=== PATIENT | female | born 1965 | race Two or more races ===

== ENCOUNTER 2018-08-09 12:24 | Day surgery (SDC) | payer OTHER ==
[2018-08-01 15:44] VITALS: BMI 22.3
[~2018-08-09 12:24] MED LIST: LIDOCAINE HCL 1%, 10 MG/ML (20ML VIAL) INF ONE; LIDOCAINE HCL 2% (50ML VIAL) INF ONE
[2018-08-09] MEDS ORDERED: BUPIVACAINE HCL/PF 0.25% (2.5MG/ML) 10 ML VIAL ONE (13:27)
[2018-08-09] MEDS ORDERED: LIDOCAINE HCL 1%, 10 MG/ML (20ML VIAL) ONE (13:27)
[2018-08-09] MEDS ORDERED: MIDAZOLAM HCL 2 MG/2 ML SINGLE DOSE VIAL ONE ×3 (13:33→14:57)
[2018-08-09] MEDS ORDERED: BENZOIN TINCTURE SWABSTICK TP ONE (13:39)
[2018-08-09] MEDS ORDERED: LIDOCAINE HCL 2% (20ML MULTI-DOSE VIAL) NR ONE (13:40)
[2018-08-09] MEDS ORDERED: CLINDAMYCIN 600 MG PREMIX BAG IVPB ONE (14:20)
[2018-08-09] MEDS ORDERED: CLINDAMYCIN PHOSPHATE 600 MG/4 ML VIAL ONE (14:34)
[2018-08-09] MEDS ORDERED: PROPOFOL 20 ML ONE (14:47)
[2018-08-09] MEDS ORDERED: LIDOCAINE HCL 1%, 10 MG/ML (20ML VIAL) INF ONE (14:58)
[2018-08-09] MEDS ORDERED: LIDOCAINE HCL 1%, 10 MG/ML (50 mL VIAL) IJ ONE (14:58)
[2018-08-09] MEDS ORDERED: LIDOCAINE HCL 2% (50ML VIAL) INF ONE ×2 (15:01)
[2018-08-09] MEDS ORDERED: oxyCODONE HCL 5 MG TABLET PO PRN (15:26)
[2018-08-09] MEDS ORDERED: ONDANSETRON 4 MG/2 ML VIAL IVPUSH PRN (15:26)
[2018-08-09] MEDS ORDERED: LACTATED RINGERS SOLUTION 1,000 ML IV SCH (15:30)
[2018-08-09 19:22] VITALS: BP 109/63; PULSE 89; TEMP 98.2
--- NOTE | 2018-08-10 17:22 | PROC ---
Procedure Note Procedure: Date of service: 08/09/18 Preoperative Diagnosis: Lumbar Radiculopathy Postoperative Diagnosis: Same Procedure Performed: 1) Insertion of spinal cord stimulator leads x 1 2) Fluoroscopic needle guidance 3) Initial programming of device Anesthesia: Local (2% Lidocaine )/MAC Anesthesiologist: Procedure: I discussed with the patient in detail about the risks, benefits and alternatives to treatment not only limited to infection, headache, numbness, weakness and injury to nerves, spinal cord, blood vessels and muscles. The patient understood, agreed and signed the written consent. The patient was positioned prone on the fluoroscopy table. The patient was prepped and draped in the usual sterile fashion using DuraPrep and a fenestrated drape. Routine vital sign monitors were applied and anesthesia was initiated. The patient remained conversant throughout the procedure. The area to be injected was determined using fluoroscopy. Local anesthetic was given by raising a skin wheal and going down to the hub of a 22-gauge 1.5-inch needle with 1% lidocaine. The 25-gauge 3.5-inch needle was used to anesthetize the L1 lamina with 2% bupivacaine. A 14-gauge Tuohy needle was then advanced to contact the right t12-L1- level. It was walked off in a superior medial direction until it entered the epidural space using loss of resistance to air. The high - frequency spinal cord stimulator lead was advanced through the Tuohy needle. The lead was attempted to be driven to the level of T8. The lead was unable to be steered superiorly midline. The 14 guage was removed and the patient was repositioned. A 14-gauge Tuohy needle was then advanced to contact the right t12 -L1- level. It was walked off in a superior medial direction until it entered the epidural space using loss of resistance to air. Again the lead was unable to be advanced. The same procedure was repeated in detail for the left side to insert a second lead within the epidural space to reside at T8 level. The lead again was unable to be advanced due to what appeared to be scar tissue/ adhesions from her previous stimulator implant. A final attmept was made to insert the lead at the T10- T11 interspace. Local anesthetic was given by raising a skin wheal and going down to the hub of a 22-gauge 1.5-inch needle with 1% lidocaine. The 25-gauge 3.5-inch needle was used to anesthetize the L1 lamina with 2% bupivacaine. A 14-gauge Tuohy needle was then advanced to contact the right t10 L1 level. It was walked off in a superior medial direction until it entered the epidural space using loss of resistance to air. The high - frequency spinal cord stimulator lead was advanced through the Tuohy needle. The lead was attempted to be driven to the level of T8.The and directed to rest the tip at the T9. Lead position was confirmed both in AP and Lateral views under Fluoroscopy. The needle were withdrawn leaving the leads in place and were then secured to the patients skin using Stay-Fix adhesive bandages and Tegaderm. The patients back was cleaned. The patient was allowed to fully recover from anesthesia and taken to the recovery room in good position. The procedure was completed without complications and was tolerated well. The patient was monitored after the procedure. Stimulation programming and testing of the device was done in the recovery room by the device patient financial representative. The patient (or responsible libertarian) was given post-procedure and discharge instructions to follow at home. The patient was discharged in stable condition. Pre-procedure pain score: 8/10. Post-procedure pain score: 0/10. A follow-up appointment was made. If there is any problem, call my office at [phone] or report to Emergency Room. Virgil Powell DO
== END 2018-08-09 19:10 | disposition home or self-care (01) ==
LOC: JASU-SURG 12:24
PROVIDERS: ATTEND Pain Medicine Pain Medicine
PROC: 4B01XVZ Measurement of Peripheral Nervous Stimulator, External Approach (ICD-10-PCS; 2018-08-09)
PROC: 01HY3MZ Insertion of Neurostimulator Lead into Peripheral Nerve, Percutaneous Approach (ICD-10-PCS; 2018-08-09)
PROC: 4B01XVZ Measurement of Peripheral Nervous Stimulator, External Approach (ICD-10-PCS; 2018-08-09)
PROC: 00HU3MZ Insertion of Neurostimulator Lead into Spinal Canal, Percutaneous Approach (ICD-10-PCS; principal; 2018-08-09 14:00)
DX: M54.16 Radiculopathy, lumbar region (principal); M79.605 Pain in left leg; M79.604 Pain in right leg; M51.26 Other intervertebral disc displacement, lumbar region
CPT/HCPCS: 63650; 95972; C1897; 76000-TC-FY

== ENCOUNTER 2018-09-11 05:45 | Day surgery (SDC) | payer OTHER ==
[2018-09-04 10:15] VITALS: BMI 23.0
[2018-09-11] MEDS ORDERED: GELATIN, ABSORBABLE 12-7MM EACH SPONGE TP ONE (07:12)
[2018-09-11] MEDS ORDERED: THROMBIN (RECOMBINANT) 5,000 UNIT VIAL TP ONE (07:12)
[2018-09-11] MEDS ORDERED: MIDAZOLAM HCL 2 MG/2 ML SINGLE DOSE VIAL ONE (07:46)
[2018-09-11] MEDS ORDERED: ROCURONIUM BROMIDE 50 MG/5 ML VIAL ONE (07:46)
[2018-09-11] MEDS ORDERED: PROPOFOL 20 ML ONE ×2 (07:46→09:22)
[2018-09-11] MEDS ORDERED: SODIUM CHLORIDE 0.9% P/F 10 ML VIAL IJ ONE (07:59)
[2018-09-11] MEDS ORDERED: ceFAZolin SODIUM 1 GM VIAL ONE (07:59)
[2018-09-11] MEDS ORDERED: ONDANSETRON 4 MG/2 ML VIAL ONE (08:31)
[2018-09-11] MEDS ORDERED: DEXAMETHASONE SOD PHOSPHATE 4 MG/1 ML VIAL ONE (08:31)
[2018-09-11] MEDS ORDERED: LIDOCAINE HCL 1% PRESERVATIVE FREE - 30ML VIAL ONE (10:26)
[2018-09-11] MEDS ORDERED: KETOROLAC TROMETHAMINE 30 MG/1 ML VIAL ONE (10:48)
[2018-09-11] MEDS ORDERED: BACITRACIN 3.5 GM OPTHALMIC OINT TUBE ONE (11:13)
[2018-09-11] MEDS ORDERED: BACITRACIN 15 GM TUBE TOPICAL OINTMENT ONE (11:14)
[2018-09-11] MEDS ORDERED: SODIUM CHLORIDE 0.45% 1,000 ML IV SCH (11:30)
[2018-09-11] MEDS ORDERED: ONDANSETRON 4 MG/2 ML VIAL IVPUSH PRN (11:35)
[2018-09-11] MEDS ORDERED: PROMETHAZINE HCL 25 MG/1 ML VIAL IVPUSH PRN (11:35)
[2018-09-11] MEDS ORDERED: LACTATED RINGERS SOLUTION 1,000 ML IV SCH (11:45)
[2018-09-11] MEDS ORDERED: CEFAZOLIN 1 GM/D5W 1 GM/50 ML BAG ONE (12:52)
[2018-09-11] MEDS ORDERED: ceFAZolin SODIUM 1 GM VIAL IVPB ONE (14:00)
[2018-09-11] MEDS ORDERED: CEFAZOLIN 1 GM/D5W 1 GM/50 ML BAG IVPB ONE (14:00)
[2018-09-11 14:13] VITALS: PULSE 74
[2018-09-11 14:18] VITALS: BP 106/61; TEMP 98.1
--- NOTE | 2018-09-11 15:06 | OP ---
DATE OF OPERATION: 09/11/2018 PREOPERATIVE DIAGNOSES: 1. Post-laminectomy syndrome. 2. Degenerative disease, lumbar spine. POSTOPERATIVE DIAGNOSES: 1. Post-laminectomy syndrome. 2. Degenerative disease, lumbar spine. PROCEDURE PERFORMED: 1. Partial T8 laminectomy for insertion of spinal cord stimulator paddle. 2. Insertion of thoracic spinal cord stimulator paddle. 3. Insertion of spinal cord stimulator generator. 4. Intraoperative impedance testing. IMPLANTS: [employer] Penta paddle, and [employer] 5 generator. INDICATIONS FOR THE PROCEDURE: The patient is a 53-year-old female with chronic and long-standing history of back pain and prior spinal surgery. She had a spinal cord stimulator placed previously, which gave excellent coverage and relief until it needed to be removed. The patient recently underwent a new spinal cord stimulator trial, which showed excellent relief of her chronic pain. The patient is indicated for permanent implant placement. Risks, benefits and alternatives of the surgery were discussed in detail with the patient. Informed consent was obtained. DESCRIPTION OF THE PROCEDURE: The patient was brought in to operating room by stretcher, and general endotracheal anesthesia was administered by the anesthesiologist. The patient was then flipped into the prone position onto padded chest bolsters. Prior to flipping the patient, the patient was fitted with leads for intraoperative neuromonitoring. The back was then prepped and draped in the usual sterile fashion. Of note, her prior incision did run across the area of intended partial laminectomy. The wounds were then prepped and draped in the usual sterile fashion. A fluoroscopic C-arm was draped in to allow for intraoperative fluoroscopic radiographs. Prophylactic IV antibiotics were administered and a timeout was performed. An incision was then made spanning the top half of the old incision and extending proximally the same length of approximately 2 inches. Dissection was carried down to the level of the 1st spinous process that was palpable, which was the T7 spinous process. Dissection was then carried down distally through the bony lamina. There was noted to be a prior excision of the T8 spinous process. However, I was able to identify the T8 lamina through the scarring. The prior laminectomy appears to have been across T9, with removal of the prior T9 spinous process as well as the T8 spinous process. There was noted to be scarring across the midline from the prior surgery. I carefully removed the scar tissue, allowing access to the interlaminar space, which was carefully dissected out and bone excised with the help of a bur. There was noted to be scarring of the epidural space at this level. I carried the laminotomy more proximal to be able to enter an area that would allow me access to the spinal canal. A gentle dissection was carried down of the dorsal aspect of the spinal cord using a flat probe. Care was taken not to create any undue bleeding. Excellent hemostasis was achieved. The wounds were then copiously irrigated. A paddle was then passed to appropriate depth, with excellent position on the fluoroscopic radiograph. Intraoperative impedance testing showed excellent coverage as well as activity in both lower extremities. The fascia was then closed and the paddle leads were then secured with anchors and 3-0 silk suture. An incision was then made over the right superior iliac crest to allow for placement of the generator. The soft tissue was dissected and a tunneler was then used to pass the leads. The leads were then connected to the generator and impedance testing again showed excellent coverage. The generator was then inserted into the pocket, taking care to place the leads posterior to the generator. The wounds were then copiously irrigated, and deep dermal tissue was approximated with 2-0 Vicryl suture. The skin was closed with a running 2-0 nylon suture. A sterile dressing was applied. The patient tolerated the procedure well without complications. TANNER Ott, was necessary throughout the case, who provided assistance in retraction of the neural elements and implant placement. This could not have been done without a skilled surgical consultant. In addition, the case was significantly more time consuming and technically challenging due to the prior revision nature of the surgery and with dealing with the prior surgery scar tissue. JOSHUA BARROW M.D. [id number]
[2018-09-11] MEDS ORDERED: CEFAZOLIN 1 GM/D5W 1 GM/50 ML BAG IVPB SCH (18:00)
== END 2018-09-11 14:18 | disposition home or self-care (01) ==
LOC: FASU 05:45
PROVIDERS: ATTEND Orthopaedic Surgery Orthopaedic Surgery of the Spine
PROC: 0JH70MZ Insertion of Stimulator Generator into Back Subcutaneous Tissue and Fascia, Open Approach (ICD-10-PCS; 2018-09-11)
PROC: 00HU0MZ Insertion of Neurostimulator Lead into Spinal Canal, Open Approach (ICD-10-PCS; principal; 2018-09-11 08:19)
PROC: 4B01XVZ Measurement of Peripheral Nervous Stimulator, External Approach (ICD-10-PCS; 2018-09-11 08:19)
DX: M96.1 Postlaminectomy syndrome, not elsewhere classified (principal); M51.36 Other intervertebral disc degeneration, lumbar region
CPT/HCPCS: 63655; 63685; 95972; C1778; L8679; 72070-TC-FY; 94760

== ENCOUNTER 2020-09-04 05:16 | Day surgery (SDC) | payer OTHER ==
[2020-09-02 14:03] VITALS: BMI 24.4
[2020-09-04] MEDS ORDERED: LIDOCAINE HCL 1%, 10 MG/ML (20ML VIAL) INF ONE ×2 (13:53)
[2020-09-04 15:07] VITALS: BP 100/64; PULSE 77; TEMP 98.8
== END 2020-09-04 15:09 | disposition home or self-care (01) ==
LOC: JASU-SURG 05:16
PROVIDERS: ATTEND Pain Medicine Pain Medicine
PROC: 01HY3MZ Insertion of Neurostimulator Lead into Peripheral Nerve, Percutaneous Approach (ICD-10-PCS; principal; 2020-09-04 13:45)
DX: G89.4 Chronic pain syndrome (principal); M25.512 Pain in left shoulder
CPT/HCPCS: 64555; C1778

== ENCOUNTER 2021-09-03 04:10 | Day surgery (SDC) | payer OTHER ==
[2021-08-31 15:39] VITALS: BMI 23.0
[2021-09-03] MEDS ORDERED: MIDAZOLAM HCL 2 MG/2 ML SINGLE DOSE VIAL ONE (13:01)
[2021-09-03] MEDS ORDERED: SUCCINYLCHOLINE CHLORIDE 200 MG/10 ML SYRINGE ONE (13:01)
[2021-09-03] MEDS ORDERED: PROPOFOL 20 ML ONE (13:01)
[2021-09-03] MEDS ORDERED: ceFAZolin SODIUM 1 GM VIAL ONE (13:07)
[2021-09-03] MEDS ORDERED: ceFAZolin SODIUM 1 GM VIAL IVPB ONE (13:07)
[2021-09-03] MEDS ORDERED: BUPIVACAINE HCL/PF 0.25% (2.5MG/ML) 10 ML VIAL ONE (13:11)
[2021-09-03] MEDS ORDERED: LIDOCAINE HCL 1% PRESERVATIVE FREE - 30ML VIAL IJ ONE (13:22)
[2021-09-03] MEDS ORDERED: BUPIVACAINE HCL/PF 0.25% (2.5MG/ML) 10 ML VIAL IJ ONE (13:25)
[2021-09-03] MEDS ORDERED: oxyCODONE HCL 5 MG TABLET PO PRN (14:55)
[2021-09-03] MEDS ORDERED: ACETAMINOPHEN 325 MG TABLET (FP) PO PRN (14:55)
[2021-09-03] MEDS ORDERED: ONDANSETRON 4 MG/2 ML VIAL IVPUSH PRN (14:55)
[2021-09-03] MEDS ORDERED: LACTATED RINGERS SOLUTION 1,000 ML IV SCH (15:00)
[2021-09-03 16:02] VITALS: BP 126/64; PULSE 70; TEMP 98
== END 2021-09-03 14:30 | disposition home or self-care (01) ==
LOC: JASU-SURG 04:10
PROVIDERS: ATTEND Pain Medicine Pain Medicine
PROC: 01HY3MZ Insertion of Neurostimulator Lead into Peripheral Nerve, Percutaneous Approach (ICD-10-PCS; principal; 2021-09-03 11:45)
DX: G89.4 Chronic pain syndrome (principal); M25.512 Pain in left shoulder; I69.898 Other sequelae of other cerebrovascular disease
CPT/HCPCS: 64555; C1897

== ENCOUNTER 2022-04-15 04:02 | Day surgery (SDC) | payer OTHER ==
[2022-04-13 16:03] VITALS: BMI 23.0
[~2022-04-15 04:02] MED LIST changes: +LIDOCAINE 1% P/F 10 MG/ML VIAL INF ONE; -LIDOCAINE HCL 1%, 10 MG/ML (20ML VIAL) INF ONE; -LIDOCAINE HCL 2% (50ML VIAL) INF ONE
[2022-04-15] MEDS ORDERED: LIDOCAINE HCL/PF 1% SDV 5ML VIAL ONE ×2 (07:21→07:31)
[2022-04-15] MEDS ORDERED: LACOSAMIDE 100 MG TABLET PO ONE ×2 (08:45→08:53)
[2022-04-15] MEDS ORDERED: LIDOCAINE 1% P/F 10 MG/ML VIAL INF ONE ×2 (09:30)
[2022-04-15 10:39] VITALS: RESP 18; TEMP 98.8
[2022-04-15 11:01] VITALS: BP 110/54; PULSE 65
== END 2022-04-15 10:50 | disposition home or self-care (01) ==
LOC: JASU-SURG 04:02
PROVIDERS: ATTEND Pain Medicine Pain Medicine
PROC: 01HY3MZ Insertion of Neurostimulator Lead into Peripheral Nerve, Percutaneous Approach (ICD-10-PCS; principal; 2022-04-15 08:45)
DX: G89.4 Chronic pain syndrome (principal)
CPT/HCPCS: 64555; C1778

== ENCOUNTER 2022-05-10 04:12 | Day surgery (SDC) | payer OTHER ==
[2022-05-05 13:55] VITALS: BMI 22.1
[~2022-05-10 04:12] MED LIST changes: -LIDOCAINE 1% P/F 10 MG/ML VIAL INF ONE; +LIDOCAINE HCL 1% PRESERVATIVE FREE - 30ML VIAL IJ ONE
[2022-05-10] MEDS ORDERED: BUPIVACAINE HCL/PF 0.25% (2.5MG/ML) 10 ML VIAL ONE (07:26)
[2022-05-10] MEDS ORDERED: LIDOCAINE HCL/PF 1% SDV 5ML VIAL ONE (07:26)
[2022-05-10] MEDS ORDERED: LIDOCAINE HCL/PF 2% SDV 5ML VIAL ONE (07:26)
[2022-05-10] MEDS ORDERED: LIDOCAINE HCL 1% PRESERVATIVE FREE - 30ML VIAL IJ ONE (09:44)
[2022-05-10 10:29] VITALS: BP 121/67; PULSE 76; RESP 20; TEMP 97.8
== END 2022-05-10 10:35 | disposition home or self-care (01) ==
LOC: JASU-SURG 04:12
PROVIDERS: ATTEND Pain Medicine Pain Medicine
PROC: 01HY3MZ Insertion of Neurostimulator Lead into Peripheral Nerve, Percutaneous Approach (ICD-10-PCS; principal; 2022-05-10 10:00)
DX: G89.4 Chronic pain syndrome (principal); M25.511 Pain in right shoulder
CPT/HCPCS: 64555; C1778

== ENCOUNTER 2024-10-01 06:18 | Day surgery (SDC) | payer OTHER ==
[2024-09-30 11:40] VITALS: BMI 21.7
[2024-10-01] MEDS ORDERED: ACETAMINOPHEN 500 MG TABLET (FP) PO PRN (09:06)
[2024-10-01] MEDS ORDERED: VANCOMYCIN 1,000 MG VIAL (RESTRICTED TO ID ONLY) ONE (12:07)
[2024-10-01] MEDS ORDERED: LIDOCAINE 1%/EPI 1:100000 (20 ML MULTI DOSE VIAL) ONE (12:08)
[2024-10-01] MEDS ORDERED: GENTAMICIN SO4 80 MG/2 ML VIAL ONE (12:10)
[2024-10-01] MEDS ORDERED: MIDAZOLAM HCL 2 MG/2 ML SINGLE DOSE VIAL ONE ×2 (12:26→12:46)
[2024-10-01] MEDS: LIDOCAINE 1%/EPI 1:100000 (20 ML MULTI DOSE VIAL) IJ ONE ×2 (12:33→12:36)
[2024-10-01] MEDS: HYDROGEN PEROXIDE 473 ML PO ONE (12:45)
[2024-10-01] MEDS: GENTAMICIN SO4 80 MG/2 ML VIAL IVPB ONE (12:46)
[2024-10-01] MEDS ORDERED: ONDANSETRON 4 MG/2 ML VIAL ONE (12:46)
[2024-10-01] MEDS: VANCOMYCIN 1,000 MG VIAL (RESTRICTED TO ID ONLY) IVPB ONE (12:47)
[2024-10-01 13:01] VITALS: RESP 20
[2024-10-01 13:39] VITALS: BP 124/63; PULSE 74; TEMP 97.8
== END 2024-10-01 14:54 | disposition home or self-care (01) ==
LOC: JASU-SURG 06:18
PROVIDERS: ATTEND Pain Medicine Pain Medicine
PROC: 0JH70DZ Insertion of Multiple Array Stimulator Generator into Back Subcutaneous Tissue and Fascia, Open Approach (ICD-10-PCS; 2024-10-01)
PROC: 0JPT0MZ Removal of Stimulator Generator from Trunk Subcutaneous Tissue and Fascia, Open Approach (ICD-10-PCS; principal; 2024-10-01 13:00)
DX: G89.4 Chronic pain syndrome (principal); M96.1 Postlaminectomy syndrome, not elsewhere classified
CPT/HCPCS: 63685; L8679; C1820

== ENCOUNTER 2024-12-12 06:25 | Day surgery (SDC) | payer OTHER ==
[2024-12-06 11:51] VITALS: BMI 21.7
[2024-12-12] MEDS ORDERED: ACETAMINOPHEN 500 MG TABLET (FP) PO PRN (08:54)
[2024-12-12] MEDS: LIDOCAINE HCL 1% PRESERVATIVE FREE - 30ML VIAL IJ ONE ×2 (13:25)
[2024-12-12 13:53] VITALS: BP 123/63; PULSE 74; RESP 14; TEMP 97.8
== END 2024-12-12 14:11 | disposition home or self-care (01) ==
LOC: JASU-SURG 06:25
PROVIDERS: ATTEND Pain Medicine Pain Medicine
PROC: 01HY3MZ Insertion of Neurostimulator Lead into Peripheral Nerve, Percutaneous Approach (ICD-10-PCS; principal; 2024-12-12 13:30)
DX: G89.4 Chronic pain syndrome (principal)
CPT/HCPCS: 64555; C1778; 76000-TC-FY

== ENCOUNTER 2025-01-03 06:23 | Day surgery (SDC) | payer OTHER ==
[2025-01-03] MEDS ORDERED: LIDOCAINE HCL/PF 1% SDV 5ML VIAL ONE (07:25)
[2025-01-03] MEDS ORDERED: BUPIVACAINE HCL/PF 0.25% (2.5MG/ML) 10 ML VIAL ONE (07:25)
[2025-01-03] MEDS ORDERED: ACETAMINOPHEN 500 MG TABLET (FP) PO PRN (08:52)
[2025-01-03] MEDS: LIDOCAINE HCL 1% PRESERVATIVE FREE - 30ML VIAL IJ ONE ×2 (10:12)
[2025-01-03] MEDS: IOHEXOL 180 MG/1 ML ML IJ ONE ×2 (10:14)
[2025-01-03] MEDS: DEXAMETHASONE SOD PHOSPHATE 10 MG/1 ML VIAL IVPUSH ONE ×2 (10:16)
[2025-01-03 11:18] VITALS: BP 128/68; PULSE 60; RESP 16; TEMP 97.1
== END 2025-01-03 10:40 | disposition home or self-care (01) ==
LOC: JASU-SURG 06:23
PROVIDERS: ATTEND Pain Medicine Pain Medicine
PROC: 3E0R3BZ Introduction of Anesthetic Agent into Spinal Canal, Percutaneous Approach (ICD-10-PCS; 2025-01-03)
PROC: 3E0R33Z Introduction of Anti-inflammatory into Spinal Canal, Percutaneous Approach (ICD-10-PCS; principal; 2025-01-03 09:45)
DX: M54.12 Radiculopathy, cervical region (principal)
CPT/HCPCS: 76000-TC-FY; J1100